=== PATIENT | female | born 1965 | race Caucasian/White ===

== ENCOUNTER → 2019-11-16 | Outpatient (CLI) | payer BC ==
[~2019-11-16] MED LIST: CO Q1CAP2 PO; HYDR-3713 PO; LEVO125T4 PO; MAGN400C PO; SUPE5000 PO; VITAD1000T PO
--- NOTE | 2019-11-16 18:39 | ECGEPIP ---
[facility] Test Date: 2019-11-16 Pat Name: LALITO RUIZ Department: Room: - Gender: Female [employer] Equipment Operator: STEFFANIE : 1965 Requested By: GENE Cerda Order Number: [id number] Reading MD: Redd Reyez Measurements Intervals [place] Rate: 66 P: 40 GA: 154 QRS: 48 QRSD: 81 T: 44 QT: 384 QTc: 404 Interpretive Statements SINUS RHYTHM LOW QRS VOLTAGE Non specific ST/T abnormality No prior tracing in the system Electronically Signed on 11-16-2019 18:39:27 EDT by Redd Reyez
== END ==
LOC: M EKG 09:14
PROVIDERS: ATTEND Anesthesiology
DX: Z01.818 Encounter for other preprocedural examination (principal); E03.9 Hypothyroidism, unspecified; J45.909 Unspecified asthma, uncomplicated

== ENCOUNTER → 2019-11-16 | Outpatient (CLI) | LOC: M LABSMTC 08:48 → EDUNIT# 09:00 | PROVIDERS: ATTEND Anesthesiology | DX: Z03.818 Encounter for observation for suspected exposure to other biological agents ruled out (principal); Z11.59 Encounter for screening for other viral diseases | CPT/HCPCS: C9803; U0003 ==

== ENCOUNTER 2019-11-19 06:19 | Day surgery (SDC) | payer BC ==
[~2019-11-19] VITALS: Ht 154.9 cm; Wt 90.2 kg
[~2019-11-19 06:19] MED LIST changes: -HYDR-3713 PO; +LIDOCAINE 1% MDV 20ML VIAL SQ PRN
[2019-11-19] MEDS ORDERED: ceFAZolin SOD 2 GM in IV 1 EA IV ONE (07:00)
[2019-11-19] MEDS ORDERED: LR 1,000 ML IV ONE (07:00)
[2019-11-19] MEDS ORDERED: propofoL 200 MG/20 ML VIAL As Ordered ONE ×2 (07:07→08:47)
[2019-11-19] MEDS ORDERED: MIDAZOLAM INJ 2MG/2ML VIAL (J2250 PER 1MG) As Ordered ONE (07:07)
[2019-11-19] MEDS ORDERED: LIDOCAINE 2% INJ 100 MG/5 ML SYRINGE As Ordered ONE (07:07)
[2019-11-19] MEDS ORDERED: fentaNYL 100 MCG/2 ML INJECTION (J3010) As Ordered ONE (07:08)
[2019-11-19 07:09] LABS: HEMOGLOBIN 14.5 g/dl (12.0-15.5); MEAN CORPUSCULAR HEMOGLOBIN 28.5 pg (27.0-33.0); MEAN CORPUSCULAR VOLUME 86.6 fl (80.0-96.0); PLATELET COUNT, AUTOMATED 253 10^3/uL (150-450); RED BLOOD COUNT 5.08 10^6/uL (4.00-5.40)
[2019-11-19] MEDS ORDERED: LIDOCAINE 1% SDV 30ML VIAL As Ordered ONE (07:13)
[2019-11-19] MEDS ORDERED: BUPIVACAINE HCL 0.5% 30 ML VIAL As Ordered ONE (07:13)
[2019-11-19] MEDS ORDERED: dexameTHASONE 4 MG/ML 1ML VIAL (J1100 PER 1MG) As Ordered ONE (07:13)
[2019-11-19 07:40] LABS: BLOOD UREA NITROGEN 15 MG/DL (7-18); CARBON DIOXIDE LEVEL 30 MEQ/L (21-32); CHLORIDE LEVEL 108 MEQ/L (98-107); CREATININE FOR GFR 0.95 MG/DL (0.55-1.30); GLOMERULAR FILTRATION RATE > 60.0 (>51); GLUCOSE, FASTING 93 MG/DL (70-100); POTASSIUM SERUM 4.3 MEQ/L (3.5-5.1); SODIUM LEVEL 142 MEQ/L (136-145)
[2019-11-19] MEDS ORDERED: HYDR-3713 PO (08:57)
[2019-11-19] MEDS ORDERED: ONDANSETRON 4MG/2ML VIAL As Ordered ONE (09:12)
[2019-11-19] MEDS ORDERED: LR 1,000 ML IV SCH (09:15)
[2019-11-19] MEDS ORDERED: fentaNYL 100 MCG/2 ML INJECTION (J3010) IV PRN (09:15)
[2019-11-19] MEDS ORDERED: KETOROLAC 30 MG/ML 1ML VIAL IV PRN (09:15)
[2019-11-19] MEDS ORDERED: ONDANSETRON 4MG/2ML VIAL IV PRN (09:15)
[2019-11-19] MEDS ORDERED: METOCLOPRAMIDE INJ 10MG/2ML VIAL (J2765 PER 1) IV PRN (09:15)
[2019-11-19 11:00] VITALS: BP 110/63
--- NOTE | 2019-11-24 23:54 | RO ---
DATE OF PROCEDURE: 11/18/201 PREPROCEDURE DIAGNOSIS: Right foot bunion and left foot painful hardware. POSTPROCEDURE DIAGNOSIS: Right foot bunion and left foot painful hardware. PROCEDURE: Right foot bunionectomy with 1st metatarsal osteotomy and left foot K-wire removal. SURGEON: Scottie Mckeon DPM DISTRIBUTION SUPERVISOR: None. ANESTHESIA: Monitored anesthesia care with preoperative injection of 26 mL of a 1:1 mixture of 1% lidocaine plain and 0.50% Marcaine plain. ESTIMATED BLOOD LOSS: 10 mL. MATERIALS: Arthrex 3.5 headless compression screw, #3-0 and #4-0 Vicryl, #4-0 nylon. INJECTABLES: None. COMPLICATIONS: None. CONDITION: Stable. Jose Anderson is a 54-year-old female who presents to [facility] with painful bunion and painful hardware to her left foot. She presents today for surgical correction. The patient's side and site were identified and marked in the preoperative holding area. Consent was reviewed and obtained. The risks, complications, and alternatives to the procedure were explained to the patient in detail. All questions were answered. DESCRIPTION OF PROCEDURE: The patient was brought to the operating room, placed on the operating room table in the supine position, monitored anesthesia care was delivered by the anesthesia team. Preoperative injection of 26 mL of a 1:1 mixture of 1% lidocaine plain and 0.50% Marcaine plain were injected into both feet. Both feet were prepped and draped in the normal sterile fashion. Tourniquet applied to both ankles and inflated to 250 mmHg. Attention was first turned to the left foot. A dorsal incision was made over the previous scar and incision was carried with a #15 blade until the bone and the K-wires were identified. These were removed with a rongeur. Site was irrigated with normal saline, and the incision was closed with #4-0 Vicryl and #4-0 nylon. Next, attention was paid to the right foot. A dorsal incision made over the1st metatarsophalangeal joint, a #15 blade. Dissection was carried down to the metatarsophalangeal joint capsule. T-capsulotomy was performed exposing the metatarsal head. A lateral release was performed releasing the adductor tendon, lateral capsule, and sesamoidal ligaments. McGlamry elevator was used to free the plantar structures. Following this, the medial eminence was resected with sagittal saw and an osteotomy was performed of the metatarsal head, transposing it laterally. This was fixated with an Arthrex 3.5 headless compression screw. Following this, the remaining bone ledge was removed with sagittal saw, site was irrigated with normal saline, capsule repaired using #3-0 Vicryl, subcutaneous closure with #4-0 Vicryl, and skin closure with #4-0 nylon. Sterile dressings were applied, tourniquet was deflated, the patient was brought to the post-anesthesia care unit (PACU), vital signs stable, neurovascular status intact. She will be partial weightbearing on her right foot. She will followup in the office in 2 days.
== END 2019-11-19 11:10 | disposition home or self-care (01) ==
LOC: M SDC 06:19
PROVIDERS: ATTEND Podiatrist Foot & Ankle Surgery
DX: M21.611 Bunion of right foot (principal); T84.84XA Pain due to internal orthopedic prosthetic devices, implants and grafts, initial encounter; M79.672 Pain in left foot; E03.9 Hypothyroidism, unspecified; G43.909 Migraine, unspecified, not intractable, without status migrainosus; J45.909 Unspecified asthma, uncomplicated; Z79.899 Other long term (current) drug therapy
CPT/HCPCS: 20680; 28296; 36415; 80048; 85027; 88300; 97116; C1713; J0690; J1100; J2250; J2405; J3010

== ENCOUNTER → 2021-10-17 | Outpatient (REF) | payer BC ==
[~2021-10-17] MED LIST changes: +HYDR-3713 PO; -LIDOCAINE 1% MDV 20ML VIAL SQ PRN; +VITA100093 PO; -VITAD1000T PO
[2021-10-17 13:42] LABS: APPEARANCE, URINE HAZY (CLEAR); BACTERIA, URINE AUTO NEGATIVE (NEGATIVE); BILIRUBIN, URINE AUTO NEGATIVE (NEGATIVE); BLOOD, URINE BLOOD NEGATIVE (NEGATIVE); COLOR, URINE YELLOW (YELLOW); GLUCOSE, URINE (UA) AUTO NEGATIVE (NEGATIVE); KETONE, URINE AUTO NEGATIVE (NEGATIVE); LEUKOCYTE ESTERASE, URINE AUTO NEGATIVE (NEGATIVE); MUCUS, URINE SMALL (NEGATIVE); NITRITE, URINE AUTO NEGATIVE (NEGATIVE); PROTEIN, URINE AUTO NEGATIVE (NEGATIVE); RBC, URINE AUTO 0 /HPF (0-3); SPECIFIC GRAVITY URINE AUTO 1.016 (1.002-1.035); SQUAMOUS EPITHELIAL CELL UR AU 11 /HPF (0-6); UROBILINOGEN, URINE AUTO 0.2 mg/dL (0.0-2.0); WBC, URINE AUTO 1 /HPF (0-3)
== END ==
LOC: M LAB REF 12:23
PROVIDERS: ATTEND Obstetrics & Gynecology
DX: R39.89 Other symptoms and signs involving the genitourinary system (principal)

== ENCOUNTER → 2023-05-16 | Outpatient (REF) | LOC: M RAD 09:51 | PROVIDERS: ATTEND Internal Medicine | DX: M17.11 Unilateral primary osteoarthritis, right knee (principal); M25.561 Pain in right knee ==